=== PATIENT | male | born 1960 | race Caucasian/White ===

== ENCOUNTER → 2019-05-19 | Day surgery (SDC) | payer OTHER ==
[~2019-05-19] MED LIST: ASPIR 8181 MG PO; BP PILL PO; DEXAMETHASONE SOD PHOS INJ 4 MG/ML VIAL ONE; FENTANYL CITRATE/PF 100MCG/2 ML INJ ONE; GLYCOPYRROLATE INJ 1MG/ 5 ML SYR ONE; KETOROLAC TROMETHAMINE 30 MG/ML VIAL ONE; LIDOCAINE 1% W/EPINEPHRINE 20 ML VIAL ONE; LIDOCAINE HCL 2% LOCAL INJ 5 ML SDV VIAL INJ ONE; LIPITOR20 MG PO; LOSARTAN POTAS100 MG PO; METFORMIN HCL500 MG PO; MIDAZOLAM HCL 2 MG/2 ML VIAL ONE; NEOSTIGMINE 5 MG/5ML SYR ONE; ONDANSETRON HCL INJ 2MG/ML 2ML 2 MG/ML VIAL ONE; ONE DAILY FOR1 EAC1 PO; PROPOFOL IV EMULSION 10 MG/ML 20 ML VIAL ONE; ROCURONIUM BROMIDE 10 MG/ML 5ML VIAL ONE; SEVOFLURANE INHAL SOLN 250 ML PEN BTL ONE; TESTOSTERO100 MG/1 M SC; VITAMIN B-12500 MCG PO; VITAMIN C1000 MG PO; VITAMIN D1000 UNI1 PO
[2019-05-19 12:10] VITALS: BP 124/85
--- NOTE | 2019-05-19 15:59 | Operative Report ---
DATE OF PROCEDURE: 05/19/2019 SURGEON: Dipak Keller MD CHIEF COMPLAINT: Right thyroid mass. POSTOPERATIVE DIAGNOSIS: Right thyroid mass with a smaller nodule on the left thyroid gland. OPERATIVE PROCEDURE: Right thyroidectomy with appropriate closure and a fine-needle aspiration intraoperatively of the left thyroid nodule. ANESTHESIA: Anesthesiology Group. INDICATIONS: This 58-year-old male was noted on a CT scan of the chest to have enlarged thyroid. Subsequent ultrasound thyroid showed the patient has a dominant nodule in the right side with a smaller nodule in the left. Discussion of the treatment options with the patient. The patient elected to have the right thyroidectomy and needle aspiration of the left thyroid intraoperatively versus ultrasound-guided needle biopsy before surgery. DESCRIPTION OF PROCEDURE: The patient was taken to operating room, put under general anesthesia, endotracheally intubated. The neck was prepped and draped in a sterile fashion. Incision was made in the neck about two fingerbreadths from the sternal notch about 3.5 cm. The area was injected with 1% Xylocaine with 1:100,000 epinephrine for hemostasis. Dissection was carried down to subplatysmal plane. The superior and inferior flap was elevated. The strap muscle was identified and this was . The right thyroid come into view. The superior pole of the thyroid was dissected from the surrounding soft tissue. The superior parathyroid gland was identified and not disturbed. Thyroid was rotated medially and inferiorly. The thyroid gland was delivered. The recurrent laryngeal nerve was identified. The inferior parathyroid gland was also identified and not disturbed. The thyroid gland was dissected from the surrounding soft tissue. The thyroid isthmus was dissected and transected using the Harmonic scalpel. The thyroid gland was dissected from the Alonso ligament and sent for frozen section. The frozen section returned. There were two nodules in the right thyroid gland. Both were not malignant. The needle aspiration was undertaken on the left side. Palpation of the left thyroid gland located nodule. Fine-needle aspiration using a 3 mL syringe and 21-gauge needle was performed on the left thyroid nodule was sent for cytology. Closure of the area was undertaken. The neck was irrigated with copious amount of normal saline. Any bleeding area was controlled using the bipolar cautery. It was decided that a drain would not be indicated in this case. The strap muscle was advanced to the midline and closed with one stitch of mattress 3-0 Vicryl suture. The platysmal flap that was elevated was closed on itself using 3-0 Vicryl suture in interrupted fashion. Skin incision was closed using 4-0 prolene suture in the interrupted fashion. A pressure dressing was applied. The patient tolerated the above procedure well with estimated blood lossabout 20 mL. He was given 20 mg of Decadron intraoperatively. The patient was able to be transferred to recovery room in stable condition. MD ROLAND Mitchell/MODL /[id number] cc: Alexandr Lay
--- NOTE | 2019-05-21 10:50 | Pre Op History & Physical ---
DATE OF SURGERY: May 19, 2019. CHIEF COMPLAINT: Right thyroid nodule. HISTORY OF PRESENT ILLNESS: This 58-year-old male on CT scan of the chest was noted to have an enlarged thyroid. The patient denies any dysphagia, odynophagia, or shortness of breath. He has no hoarseness. The patient has no family history of thyroid problems. The patient has no radiation to the head and neck area. Ultrasound of thyroid subsequently was ordered, which showed the patient has multinodular goiter on both sides with two solid nodules on the right side. The dominant one being 3.4 cm and also a smaller nodule in the left with 1.5 cm with some subcentric nodule on the left. I had a lengthy discussion with the patient and his regarding treatment options. They have declined needle aspiration and wanted the surgical option for the thyroid. REVIEW OF SYSTEMS: System review showed no recent cardiovascular, respiratory, or GI problem. PAST MEDICAL HISTORY: The patient has type 2 diabetes and borderline hypertension. PAST SURGICAL HISTORY: The patient has previous vein removed from his leg. ALLERGIES: HE HAS NO KNOWN ALLERGIES. MEDICATIONS: He is on: 1. Baby aspirin. 2. Metformin. 3. Lipitor. 4. Vitamin D. SOCIAL HISTORY: Nonsmoker, nondrinker. FAMILY HISTORY: Noncontributory. PHYSICAL EXAMINATION: VITAL SIGNS: The patient's vital signs were within normal limits. He was seen with his . HEENT: Ear exam showed normal tympanic membrane bilaterally. Nasal exam show the nasal septum on right side about 20%. Nasal endoscopy showed the patient has mobile vocal folds bilaterally with no lesion in the hypopharynx. Oropharynx and oral cavity show 1+ tonsils bilaterally with Mallampati level 2. NECK: Showed no lymph nodes palpable. Thyroid fullness was noted on both sides. CHEST: Showed good air entry bilaterally. CARDIOVASCULAR: Showed S1 and S2. No murmur noted. ASSESSMENT AND PLAN: Mr. Ladd has a dominant nodule in the right side with a small solid nodule in the left. The suggested treatment is right thyroidectomy, possible needle aspiration of the left thyroid nodule, and possible total thyroidectomy and other necessary procedures. Complication of procedure includes, but not limited to bleeding, infection, hypothyroidism, hyperthyroidism, hypocalcemia, hypercalcemia, voice change, recurrent laryngeal nerve injury, trouble swallowing, dysphagia, perforation of the esophagus, pneumomediastinum, mediastinitis, persistent recurrence of the problem. The alternative will be continue observation, repeat needle aspiration of the area. The patient and his have elected to undergo surgical procedure. He has been advised to stop his aspirin at least 7 to 10 days before surgery and he has obtained the cardiac clearance from Dr. Riddle. MD ROLAND Mitchell/SYLWIA /[id number] cc: Dr. Lay
== END | disposition home or self-care (01) ==
LOC: OR 06:36
PROVIDERS: ATTEND Otolaryngology Otolaryngology/Facial Plastic Surgery
DX: D34 Benign neoplasm of thyroid gland (principal); E11.9 Type 2 diabetes mellitus without complications; R03.0 Elevated blood-pressure reading, without diagnosis of hypertension; Z79.82 Long term (current) use of aspirin; Z79.84 Long term (current) use of oral hypoglycemic drugs
CPT/HCPCS: 10005; 36415; 60210; 82948; 88307; 88331; 93005; J1100; J1885; J2001; J2250; J2405; J2704; J3010; J3490